=== PATIENT | male | born 1970 | race Caucasian/White ===

== ENCOUNTER 2017-07-03 15:00 | Emergency (ER) | payer OTHER ==
[~2017-07-03] VITALS: Ht 170.2 cm; Wt 85.0 kg
[2017-07-03] MEDS ORDERED: PROPARACAINE HCL 0.5% 15 ML OPHTHALMIC SOLUTION OU ONE (16:15)
[2017-07-03] MEDS ORDERED: IBUPROFEN 800 MG TABLET PO ONE (16:15)
[2017-07-03] MEDS ORDERED: FLUORESCEIN SODIUM 1 MG STRIP ONE (16:29)
[2017-07-03 17:01] VITALS: BP 126/82
== END 2017-07-03 17:05 | disposition home or self-care (01) ==
LOC: EMS 15:02
DX: S05.02XA Injury of conjunctiva and corneal abrasion without foreign body, left eye, initial encounter (principal); Z88.5 Allergy status to narcotic agent; Z88.6 Allergy status to analgesic agent; X58.XXXA Exposure to other specified factors, initial encounter; Y93.89 Activity, other specified; Y92.89 Other specified places as the place of occurrence of the external cause; Y99.8 Other external cause status
CPT/HCPCS: 99283